=== PATIENT | female | born 1985 | race Caucasian/White ===

== ENCOUNTER 2022-05-20 17:15 | Inpatient (IN) ==
[2022-05-20] MEDS ORDERED: SODIUM CHLORIDE 0.9% 500 ML IV STA (19:49)
[2022-05-20] MEDS ORDERED: MORPHINE 2 MG/1 ML SYRINGE IV STA (19:49)
[2022-05-20] MEDS ORDERED: MAGNESIUM HYDROXIDE SUSP 30 ML UDCUP PO PRN (20:32)
[2022-05-20 22:20] LABS: Basophils % 0.4 % (0.0-0.8); Eosinophils # 0.1 10*3/uL (0.0-0.87); Eosinophils % 1.1 % (0.00-10.9); Immature Granulocytes % 0.5 %; Immature Granulocytes Absolute 0.04 #; Lymphocytes # 2.1 10*3/uL (1.4-4.0); Lymphocytes % 24.3 % (21.3-54.2); Mean Corpuscular HGB Conc 32.4 GM/DL (32-36); Mean Corpuscular Volume 92.5 FL (87-102); Mean Platelet Volume 9.8 FL (9.6-12.0); Monocytes % 11.3 % (1.7-12.7); Neutrophils % 62.4 % (38.7-73.9); Platelet Count 232 T/CUMM (130-400); Red Cell Distribution Width 11.9 % (9.3-17.3); White Blood Count 8.5 T/CUMM (4-12)
[2022-05-20] MEDS: HYDROmorphone 1 MG/1 ML SYRINGE IV PRN (22:37)
[2022-05-20 22:38] LABS: Bilirubin,Total 0.5 MG/DL (0.20-1.00); Calcium 8.6 MG/DL (8.5-10.1); Osmolality,Calculated 276.4 MOS/KG (273-304); Potassium 3.7 MMOL/L (3.5-5.1); Total Protein 6.3 G/DL (6.4-8.2)
[2022-05-20] MEDS: DEXTROSE 5% NACL 0.45% 1,000 ML IV SCH (23:10)
[2022-05-21] MEDS: HYDROmorphone 1 MG/1 ML SYRINGE IV PRN ×2 (02:02→05:09)
[2022-05-21] MEDS ORDERED: FAMOTIDINE 20 MG TABLET PO ONE (06:30)
[2022-05-21] MEDS ORDERED: ALBUTEROL 2.5 MG/3 ML NEB RESP TX ONE (06:39)
[2022-05-21] MEDS ORDERED: DEXAMETHASONE 4 MG/1 ML VIAL ONE ×2 (06:43→08:06)
[2022-05-21] MEDS ORDERED: ROPIVACAINE 0.5% 30 ML VIAL ONE (06:43)
[2022-05-21] MEDS ORDERED: MIDAZOLAM 2 MG/2 ML VIAL ONE (06:51)
[2022-05-21] MEDS ORDERED: LIDOCAINE 2% 5 ML VIAL ONE (06:51)
[2022-05-21] MEDS ORDERED: propofoL 200 MG/20 ML VIAL IV ONE (06:51)
[2022-05-21] MEDS ORDERED: fentaNYL 100 MCG/2 ML VIAL ONE ×2 (06:51→08:46)
[2022-05-21] MEDS ORDERED: SEVOFLURANE 1 UNIT/15 MINUTE INH ONE ×6 (07:25→08:52)
[2022-05-21] MEDS ORDERED: ceFAZolin 1,000 MG VIAL ONE (07:26)
[2022-05-21] MEDS ORDERED: VANCOMYCIN 1,000 MG VIAL ONE (07:26)
[2022-05-21] MEDS ORDERED: VANCOMYCIN INJ 1,000 MG in SODIUM CHLORIDE 0.9% 250 ML IV ONE (07:30)
[2022-05-21] MEDS ORDERED: PROMETHAZINE 25 MG/1 ML VIAL IM PRN (07:52)
[2022-05-21] MEDS ORDERED: TEMAZEPAM 7.5 MG CAPSULE PO PRN (07:52)
[2022-05-21] MEDS ORDERED: BISACODYL 10 MG SUPP RECTAL PRN (07:52)
[2022-05-21] MEDS ORDERED: ONDANSETRON 4 MG/2 ML VIAL IV PRN (07:52)
[2022-05-21] MEDS ORDERED: diphenhydrAMINE CAP 25 MG CAPSULE PO PRN (07:52)
[2022-05-21] MEDS ORDERED: LACTULOSE 20 GM/30 ML UDCUP PO PRN (07:52)
[2022-05-21] MEDS ORDERED: KETOROLAC 30 MG/1 ML VIAL ONE (08:06)
[2022-05-21] MEDS ORDERED: ROCURONIUM 50 MG/5 ML VIAL IV ONE (08:06)
[2022-05-21] MEDS ORDERED: ACETAMINOPHEN INJ 1,000 MG/100 ML VIAL IV ONE (08:06)
[2022-05-21] MEDS ORDERED: PHENYLEPHRINE 1 MG/10 ML SYRINGE IV ONE ×2 (08:17→08:35)
[2022-05-21] MEDS ORDERED: MORPHINE 2 MG/1 ML SYRINGE IV PRN (08:23)
[2022-05-21] MEDS ORDERED: GLYCOPYRROLATE 0.4 MG/2 ML VIAL ONE (08:31)
[2022-05-21] MEDS ORDERED: NEOSTIGMINE 10 MG/10 ML VIAL ONE (08:31)
[2022-05-21] MEDS ORDERED: LACTATED RINGERS 1,000 ML IV ONE (08:38)
[2022-05-21] MEDS ORDERED: SODIUM CHLORIDE 0.9% 250 ML IV ONE (08:38)
[2022-05-21 09:30] LABS: Bilirubin,Urine Negative (Negative); Blood, Urine Negative (Negative); Glucose,Urine (UA) Negative (Negative); Ketones,Urine Negative (Negative); Nitrite,Urine Negative (Negative); Protein,Urine Negative (Negative); RBC,Urine <1 /HPF (0-4); Squamous Epithelial Cell,Urine Occasional /HPF (0-10); Urine Appearance Clear (Clear); Urine Color Yellow (Yellow); Urine Specific Gravity 1.015 (1.001-1.035); Urine Urobilinogen 0.2 eU/dL (<2.0)
[2022-05-21] MEDS: GABAPENTIN 600 MG TABLET PO SCH ×4 (10:17→20:05)
[2022-05-21] MEDS: DEXTROSE 5% NACL 0.45% 1,000 ML IV SCH (10:18)
[2022-05-21 11:32] LABS: Bilirubin,Urine Negative (Negative); Blood, Urine Trace mg/dL (Negative); Glucose,Urine (UA) Negative (Negative); Ketones,Urine Negative (Negative); Nitrite,Urine Negative (Negative); Protein,Urine Negative (Negative); Urine Appearance Clear (Clear); Urine Color Yellow (Yellow); Urine Urobilinogen 0.2 eU/dL (<2.0); Urine pH 6.5 (4.5-8.0)
[2022-05-21 11:33] LABS: Mucus,Urine Occasional /LPF (Occasional); RBC,Urine 8 /HPF (0-4); Squamous Epithelial Cell,Urine Occasional /HPF (0-10)
[2022-05-21] MEDS: PANTOPRAZOLE 40 MG TABLET PO SCH (12:18)
[2022-05-21] MEDS: DOCUSATE SODIUM 100 MG CAPSULE PO SCH ×2 (12:18→20:05)
[2022-05-21 13:19] LABS: Barbiturates Screen,Urine Negative (Negative); Benzodiazepines Screen,Urine Positive (Negative); Cannabinoid Screen,Urine Negative (Negative); Opiate Screen,Urine Positive (Negative); Phencyclidine Screen,Urine Negative (Negative)
[2022-05-21] MEDS: TOPIRAMATE 100 MG TABLET PO SCH (20:05)
[2022-05-21] MEDS: MORPHINE 2 MG/1 ML SYRINGE IV PRN (20:05)
[2022-05-21] MEDS: FONDAPARINUX 2.5 MG/0.5 ML SYRINGE SUBCUT SCH (20:06)
[2022-05-22 04:50] LABS: Basophils % 0.1 % (0.0-0.8); Eosinophils % 0.5 % (0.00-10.9); Hemoglobin 8.5 GM/DL (12.0-16.0); Immature Granulocytes % 0.4 %; Immature Granulocytes Absolute 0.03 #; Lymphocytes # 1.5 10*3/uL (1.4-4.0); Lymphocytes % 18.2 % (21.3-54.2); Mean Corpuscular HGB Conc 32.7 GM/DL (32-36); Mean Corpuscular Volume 92.5 FL (87-102); Mean Platelet Volume 10.1 FL (9.6-12.0); Monocytes # 0.8 10*3/uL (0.11-0.8); Monocytes % 9.1 % (1.7-12.7); Neutrophils % 71.7 % (38.7-73.9); Platelet Count 218 T/CUMM (130-400); Red Blood Count 2.81 MC/CUMM (3.8-5.5); Red Cell Distribution Width 11.7 % (9.3-17.3); White Blood Count 8.3 T/CUMM (4-12)
[2022-05-22 05:07] LABS: Calcium 8.3 MG/DL (8.5-10.1); Osmolality,Calculated 281.1 MOS/KG (273-304); Potassium 3.5 MMOL/L (3.5-5.1)
[2022-05-22] MEDS ORDERED: ACETAMINOPHEN 325 MG TABLET PO PRN (07:54)
[2022-05-22] MEDS: MORPHINE 2 MG/1 ML SYRINGE IV PRN ×3 (08:02→18:30)
[2022-05-22] MEDS: GABAPENTIN 600 MG TABLET PO SCH ×4 (08:30→20:58)
[2022-05-22] MEDS: DOCUSATE SODIUM 100 MG CAPSULE PO SCH ×2 (08:30→20:58)
[2022-05-22] MEDS: PANTOPRAZOLE 40 MG TABLET PO SCH (08:30)
[2022-05-22] MEDS: LACTATED RINGERS 1,000 ML IV SCH (09:54)
[2022-05-22] MEDS: DEXTROSE 5% NACL 0.45% 1,000 ML IV SCH ×2 (09:54→09:55)
[2022-05-22] MEDS: TOPIRAMATE 100 MG TABLET PO SCH (20:58)
[2022-05-22] MEDS: FONDAPARINUX 2.5 MG/0.5 ML SYRINGE SUBCUT SCH (20:58)
[2022-05-23] MEDS: MORPHINE 2 MG/1 ML SYRINGE IV PRN ×4 (06:07→19:57)
[2022-05-23 07:59] LABS: Basophils % 0.2 % (0.0-0.8); Eosinophils # 0.2 10*3/uL (0.0-0.87); Eosinophils % 1.8 % (0.00-10.9); Hematocrit 29.6 VOL% (35.7-47.0); Hemoglobin 9.8 GM/DL (12.0-16.0); Immature Granulocytes % 0.5 %; Immature Granulocytes Absolute 0.04 #; Lymphocytes # 1.5 10*3/uL (1.4-4.0); Lymphocytes % 17.4 % (21.3-54.2); Mean Corpuscular HGB Conc 33.1 GM/DL (32-36); Mean Corpuscular Volume 90.8 FL (87-102); Mean Platelet Volume 9.3 FL (9.6-12.0); Monocytes # 0.6 10*3/uL (0.11-0.8); Monocytes % 7.2 % (1.7-12.7); Neutrophils % 72.9 % (38.7-73.9); Platelet Count 273 T/CUMM (130-400); Red Blood Count 3.26 MC/CUMM (3.8-5.5); White Blood Count 8.5 T/CUMM (4-12)
[2022-05-23] MEDS: DOCUSATE SODIUM 100 MG CAPSULE PO SCH ×2 (08:18→20:01)
[2022-05-23] MEDS: PANTOPRAZOLE 40 MG TABLET PO SCH (08:18)
[2022-05-23] MEDS: GABAPENTIN 600 MG TABLET PO SCH ×4 (08:18→20:02)
[2022-05-23 08:25] LABS: Calcium 8.3 MG/DL (8.5-10.1); Osmolality,Calculated 282.1 MOS/KG (273-304); Potassium 3.6 MMOL/L (3.5-5.1)
[2022-05-23] MEDS: FONDAPARINUX 2.5 MG/0.5 ML SYRINGE SUBCUT SCH (20:01)
[2022-05-23] MEDS: TOPIRAMATE 100 MG TABLET PO SCH (20:02)
[2022-05-24] MEDS: MORPHINE 2 MG/1 ML SYRINGE IV PRN (01:42)
[2022-05-24 05:02] LABS: Hematocrit 28.8 VOL% (35.7-47.0); Hemoglobin 9.6 GM/DL (12.0-16.0)
[2022-05-24] MEDS: GABAPENTIN 600 MG TABLET PO SCH ×2 (08:44→12:04)
[2022-05-24] MEDS: PANTOPRAZOLE 40 MG TABLET PO SCH (08:45)
[2022-05-24] MEDS: DOCUSATE SODIUM 100 MG CAPSULE PO SCH (08:45)
[2022-05-24 11:10] VITALS: BP 105/63
== END 2022-05-24 14:20 | disposition home or self-care (01) | DRG 323 ==
LOC: N.ED 17:15 → N.EDINP 20:32 → N.3E 21:27
PROVIDERS: ADMIT Orthopaedic Surgery; ATTEND Orthopaedic Surgery